=== PATIENT | female | born 1980 | race Asian ===

== ENCOUNTER 2018-11-21 10:12 | Emergency (ER) | payer BC ==
[~2018-11-21] VITALS: Ht 160 cm; Wt 54.4 kg
[2018-11-21 10:39] VITALS: Ht 160 cm; Wt 54.4 kg
[2018-11-21 15:35] VITALS: BP 114/66
== END 2018-11-21 15:35 | disposition home or self-care (01) ==
LOC: ED 10:12
DX: S93.402A Sprain of unspecified ligament of left ankle, initial encounter (principal); S80.12XA Contusion of left lower leg, initial encounter; E05.90 Thyrotoxicosis, unspecified without thyrotoxic crisis or storm; W18.30XA Fall on same level, unspecified, initial encounter; Y93.01 Activity, walking, marching and hiking; Y92.89 Other specified places as the place of occurrence of the external cause; Y99.8 Other external cause status
CPT/HCPCS: 90715; Q0092